=== PATIENT | male | born 1985 ===

== ENCOUNTER 2016-11-01 12:30 | Emergency (ER) | payer OTHER ==
--- NOTE | 2016-11-01 13:17 | UC ---
[facility] General HPI - HPI Summary HPI Summary: complaint of rash that is on his trunk started approx 2 weeks ago rash is not itchy the rash on his right siode gets a crusty discharge at times hasn't tried any medication or treatments spends time wrestling denies fever , no new soaps lotions,meds or foods - History of Current Complaint Chief Complaint: UCRash Stated Complaint: RASH Time Seen by Provider: 11/01/16 13:09 Hx Obtained From: Patient - Allergy/Home Medications Allergies/Adverse Reactions: Allergies Allergy/AdvReac Type Severity Reaction Status Date / Time No Known Allergies Allergy Verified 11/01/16 12:49 Home Medications: Home Medications Acyclovir [Zovirax] 400 mg PO 11/01/16 [History] PMH/Surg Hx/FS Hx/Imm Hx Previously Healthy: Yes - Surgical History Surgical History: Yes Surgery Procedure, Year, and Place: 2001 left knee - Family History Known Family History: Negative: Cardiac Disease, Hypertension, Diabetes - Social History Occupation: Employed Full-time Lives: With Family Alcohol Use: None Substance Use Type: None Smoking Status (MU): Never Smoked Tobacco Review of Systems Constitutional: Negative Skin: Rash Eyes: Negative ENT: Negative Respiratory: Negative Cardiovascular: Negative Gastrointestinal: Negative Genitourinary: Negative Motor: Negative Neurovascular: Negative Musculoskeletal: Negative Neurological: Negative Psychological: Negative All Other Systems Reviewed And Are Negative: Yes Physical Exam Triage Information Reviewed: Yes Appearance: Well-Appearing, No Pain Distress, Well-Nourished Vital Signs: Initial Vital Signs Temp 98.6 F 11/01/16 12:44 Pulse 75 11/01/16 12:44 Resp 16 11/01/16 12:44 BP 140/64 11/01/16 12:44 Pulse Ox 99 11/01/16 12:44 Vital Signs Reviewed: Yes Eyes: Positive: Conjunctiva Clear ENT: Positive: Pharynx normal, TMs normal Neck: Positive: Supple Respiratory: Positive: Lungs clear, Normal breath sounds, No respiratory distress, No accessory muscle use Cardiovascular: Positive: RRR, No Murmur, Pulses Normal Abdomen Description: Positive: Nontender, Soft Bowel Sounds: Positive: Present Musculoskeletal Exam: Normal Neurological Exam: Normal Psychological Exam: Normal Skin: Positive: rashes - right side of trunk- flat circular areas of erythemaotus areas with yellow crusting left sode of trunk - [id number] of erythema with raised border and clear center Course/Dx - Differential Dx - Multi-Symptom Provider Diagnoses: tinea, impetigo Discharge - Discharge Plan Condition: Stable Disposition: HOME Prescriptions: Clotrimazole/Betamethasone* [Lotrisone Cream*] 1 applic TOPICAL BID #1 tube Mupirocin 2% OINT* [Bactroban 2 % Oint*] 1 applic TOPICAL BID #1 tube Patient Education Materials: Tinea Corporis (ED), Impetigo (ED) Referrals: [facility] [Outside] Additional Instructions: Please start ointment on the rash on right side of torso as directed please start lotrisone on rash left side of torso Increase fluids and rest Take acetaminophen or ibuprofen for fever or pain Please review your discharge instructions. If your symptoms do not improve please call your primary care provider or return to urgent care. Your blood pressure is elevated. Please contact your primary care provider within 1 day -4 weeks for further evaluation.
== END 2016-11-01 13:34 | disposition home or self-care (01) ==
LOC: UCEAST 12:30
DX: B35.4 Tinea corporis (principal); L01.00 Impetigo, unspecified
CPT/HCPCS: 99202; G0463